=== PATIENT | male | born 1960 | race Caucasian/White ===

== ENCOUNTER 2019-10-13 19:53 | Inpatient (IN) | payer MEDICAID ==
[~2019-10-13] VITALS: Ht 175.3 cm; Wt 69.4 kg
[~2019-10-13 19:53] MED LIST: AMLO10TA80 PO; ATOR20TA65 PO; METO100T16 PO; MONT10TA26 PO
[2019-10-13 21:53] LABS: HEMATOCRIT. 27.9 % (42.0-52.0); HEMOGLOBIN. 9.2 g/dL (14.0-18.0); MEAN CORPUSCULAR VOLUME 90.7 fL (80.0-94.0); MEAN PLATELET VOLUME 9.3 fl (7.4-10.4); PLATELET 165 x1000/uL (130-400); RED BLOOD CELL COUNT 3.08 mill/uL (4.7-6.1); RED CELL DISTRIBUTION WIDTH 17.9 % (11.6-14.6)
[2019-10-13 21:57] LABS: CHLORIDE 98 mEq/L (98-107)
[2019-10-13 21:58] LABS: PROTHROMBIN TIME 10.7 sec (9.6-11.0)
[2019-10-13] MEDS ORDERED: LEVOFLOXACIN 750MG PREMIX 150 ML IV ONE (22:15)
[2019-10-13 22:39] LABS: BG BASE EXCESS -0.5 mmol/L (-2.0-2.0); BG CARBOXYHEMOGLOBIN 0.4 % (0.5-1.5); BG DEOXYHEMOGLOBIN 5.5 % (0.0-5.0); BG FRACTION INSPIRED OXYGEN 28; BG HCO3 ACT 24.2 mmol/L (22.0-26.0); BG METHEMOGLOBIN 0.1 % (0.0-1.5); BG OXYGEN SATURATION 94.5 % (92.0-98.5); BG PCO2 39.8 mmHg (35.0-45.0); BG PH 7.402 (7.350-7.450); BG PO2 78.5 mmHg (75.0-100.0); BG SAMPLE SITE LEFT BRACHIAL; BG TOTAL HEMOGLOBIN 9.5 g/dL (12.0-18.0); BG VENT MODE NASAL CANNULA
[2019-10-13 22:54] LABS: PLATELET ESTIMATE NORMAL
[2019-10-13] MEDS ORDERED: HYDROCODONE/ACETAMINOPHEN 5/325MG TABLET PO ONE (23:45)
[2019-10-14] VITALS (8 sets, daily range): BP systolic 107–151; BP diastolic 59–89
[2019-10-14] MEDS ORDERED: ONDANSETRON HCL 4MG/2ML INJ IV ONE
[2019-10-14] MEDS ORDERED: PROMETHAZINE/DEXTROMETHORPHAN 6.25-15MG/5ML BOTTLE 120ML PO ONE
[2019-10-14] MEDS ORDERED: MORPHINE SULFATE 2 MG/ML CPJ (NOT FOR IM USE) IV PRN (01:45)
[2019-10-14] MEDS ORDERED: ALBUTEROL (0.5%) 2.5MG/0.5ML NEB HHN PRN (01:45)
[2019-10-14] MEDS ORDERED: DIPHENHYDRAMINE 50MG/ML VIAL IM PRN (01:45)
[2019-10-14] MEDS: SEVELAMER CARBONATE 800 MG TABLET PO SCH ×3 (06:39→19:08)
[2019-10-14] MEDS ORDERED: AZITHROMYCIN 500 MG in DEXT 5% WATER 250 ML IV SCH (08:00)
[2019-10-14] MEDS: FOLIC ACID/VITAMIN B COMP W-C TABLET PO SCH (09:51)
[2019-10-14] MEDS: CEFTRIAXONE 1 G PREMIX 50 ML IV SCH (09:51)
[2019-10-14] MEDS: METOPROLOL TARTRATE 50MG TABLET PO SCH (09:51)
[2019-10-14] MEDS: LOSARTAN POTASSIUM 50 MG TABLET PO SCH (09:52)
[2019-10-14] MEDS: ASPIRIN 81MG TABLET PO SCH (09:52)
[2019-10-14] MEDS: AMLODIPINE 10MG TABLET PO SCH (09:52)
[2019-10-14 12:08] LABS: HEMATOCRIT. 25.3 % (42.0-52.0); HEMOGLOBIN. 8.3 g/dL (14.0-18.0); MEAN CORPUSCULAR VOLUME 91.8 fL (80.0-94.0); MEAN PLATELET VOLUME 9.7 fl (7.4-10.4); PLATELET 151 x1000/uL (130-400); RED BLOOD CELL COUNT 2.76 mill/uL (4.7-6.1); RED CELL DISTRIBUTION WIDTH 17.7 % (11.6-14.6)
[2019-10-14 12:31] LABS: PHOSPHORUS 6.5 mg/dL (2.5-4.9)
[2019-10-14 12:50] LABS: PLATELET ESTIMATE NORMAL
[2019-10-14] MEDS: ACETAMINOPHEN 325MG TABLET PO PRN (22:16)
[2019-10-15] VITALS: BP 91/43
[2019-10-15] MEDS: METOPROLOL TARTRATE 50MG TABLET PO SCH ×3 (00:51→21:22)
[2019-10-15] MEDS: HYDROXYCHLOROQUINE SULFATE 200MG TABLET PO SCH ×2 (00:51→10:01)
[2019-10-15] MEDS: ZINC SULFATE 220 MG ( 50 ) CAPSULE PO SCH ×2 (00:51→10:00)
[2019-10-15 04:00] VITALS: BP 96/52
[2019-10-15] MEDS: SEVELAMER CARBONATE 800 MG TABLET PO SCH ×3 (06:21→17:10)
[2019-10-15 08:00] VITALS: BP 117/60
[2019-10-15] MEDS: CEFTRIAXONE 1 G PREMIX 50 ML IV SCH (09:00)
[2019-10-15] MEDS: ASPIRIN 81MG TABLET PO SCH ×2 (09:00→10:00)
[2019-10-15] MEDS: FOLIC ACID/VITAMIN B COMP W-C TABLET PO SCH (10:00)
[2019-10-15] MEDS: LOSARTAN POTASSIUM 50 MG TABLET PO SCH (10:00)
[2019-10-15] MEDS: AMLODIPINE 10MG TABLET PO SCH (10:00)
[2019-10-15] MEDS: AZITHROMYCIN 500 MG TABLET PO SCH (10:00)
[2019-10-15 10:39] LABS: HEMOGLOBIN. 8.1 g/dL (14.0-18.0); MEAN CORPUSCULAR HEMOGLOBIN 29.7 pg (28.0-32.0); MEAN CORPUSCULAR VOLUME 92.3 fL (80.0-94.0); MEAN PLATELET VOLUME 9.4 fl (7.4-10.4); PLATELET 166 x1000/uL (130-400); RED BLOOD CELL COUNT 2.71 mill/uL (4.7-6.1)
[2019-10-15 11:51] VITALS: BP 114/67
[2019-10-15] MEDS: ACETAMINOPHEN 325MG TABLET PO PRN (14:06)
[2019-10-15] MEDS ORDERED: BENZONATATE 100MG CAPSULE PO PRN (17:15)
[2019-10-15 20:00] VITALS: BP 125/63
[2019-10-15] MEDS ORDERED: HYDROXYCHLOROQUINE SULFATE 200MG TABLET PO SCH (21:00)
[2019-10-15] MEDS ORDERED: EPOETIN ALFA 10000UNITS/ML VIAL SUBCUT SCH (21:00)
[2019-10-15] MEDS: GUAIFENESIN 600MG ER TABLET PO SCH (21:22)
[2019-10-16] VITALS (8 sets, daily range): BP systolic 108–130; BP diastolic 41–69
[2019-10-16 06:15] LABS: BASOPHILS % 0.6 % (0.0-2.0); EOSINOPHILS % 4.6 % (0.0-5.0); HEMATOCRIT. 24.2 % (42.0-52.0); HEMOGLOBIN. 7.7 g/dL (14.0-18.0); LYMPHOCYTES % 12.9 % (20.0-50.0); MEAN CORPUSCULAR HEMOGLOBIN 29.4 pg (28.0-32.0); MEAN PLATELET VOLUME 9.4 fl (7.4-10.4); MONOCYTES % 12.2 % (2.0-8.0); NEUTROPHILS % 69.7 % (40.0-76.0); PLATELET 169 x1000/uL (130-400); RED BLOOD CELL COUNT 2.63 mill/uL (4.7-6.1); RED CELL DISTRIBUTION WIDTH 17.6 % (11.6-14.6)
[2019-10-16 08:25] LABS: PLATELET ESTIMATE NORMAL
[2019-10-16] MEDS: METOPROLOL TARTRATE 50MG TABLET PO SCH (09:00)
[2019-10-16] MEDS: AMLODIPINE 10MG TABLET PO SCH (09:00)
[2019-10-16] MEDS: LOSARTAN POTASSIUM 50 MG TABLET PO SCH (09:00)
[2019-10-16] MEDS: SEVELAMER CARBONATE 800 MG TABLET PO SCH ×2 (09:15→14:07)
[2019-10-16] MEDS: ZINC SULFATE 220 MG ( 50 ) CAPSULE PO SCH (09:15)
[2019-10-16] MEDS: FOLIC ACID/VITAMIN B COMP W-C TABLET PO SCH (09:16)
[2019-10-16] MEDS: GUAIFENESIN 600MG ER TABLET PO SCH (09:16)
[2019-10-16] MEDS: ASPIRIN 81MG TABLET PO SCH (09:17)
[2019-10-16] MEDS: AZITHROMYCIN 500 MG TABLET PO SCH (09:24)
[2019-10-16] MEDS ORDERED: CEFTRIAXONE 1 G PREMIX 50 ML IV SCH (11:00)
[2019-10-16] MEDS ORDERED: IPRATROPIUM/ALBUTEROL 0.5-3(2.5)MG/3ML NEB HHN SCH (13:30)
== END 2019-10-16 20:45 | disposition home or self-care (01) | DRG 139 ==
LOC: ER 19:53 → 7EST 22:29 → ENRESERV 23:47 → 7WST 10-15 23:22
PROVIDERS: ADMIT Internal Medicine; ATTEND Internal Medicine
PROC: 5A1D70Z Performance of Urinary Filtration, Intermittent, Less than 6 Hours Per Day (ICD-10-PCS; 2019-10-14)
PROC: 05HY33Z Insertion of Infusion Device into Upper Vein, Percutaneous Approach (ICD-10-PCS; principal; 2019-10-15)
PROC: B54NZZA Ultrasonography of Left Upper Extremity Veins, Guidance (ICD-10-PCS; 2019-10-15)
PROC: 5A1D70Z Performance of Urinary Filtration, Intermittent, Less than 6 Hours Per Day (ICD-10-PCS; 2019-10-16)
DX: J18.9 Pneumonia, unspecified organism (principal); R65.11 Systemic inflammatory response syndrome (SIRS) of non-infectious origin with acute organ dysfunction; J96.01 Acute respiratory failure with hypoxia; I12.0 Hypertensive chronic kidney disease with stage 5 chronic kidney disease or end stage renal disease; N18.6 End stage renal disease; E87.1 Hypo-osmolality and hyponatremia; M94.0 Chondrocostal junction syndrome [Tietze]; E78.5 Hyperlipidemia, unspecified; F17.210 Nicotine dependence, cigarettes, uncomplicated; I25.10 Atherosclerotic heart disease of native coronary artery without angina pectoris; D64.9 Anemia, unspecified; F15.10 Other stimulant abuse, uncomplicated; R19.7 Diarrhea, unspecified; Z20.828 Contact with and (suspected) exposure to other viral communicable diseases; Z82.49 Family history of ischemic heart disease and other diseases of the circulatory system; Z95.1 Presence of aortocoronary bypass graft; Z99.2 Dependence on renal dialysis; Z79.899 Other long term (current) drug therapy; Z71.6 Tobacco abuse counseling
CPT/HCPCS: 36415; 36600; 71045; 76937; 80048; 80053; 80061; 82375; 82805; 83605; 83880; 84100; 84484; 85025; 86141; 87635; 87804; 93005; 94640; 99291; C1725; C1769; J0456; J0696; J0885; J1956; J2270; J2405; J7060

== ENCOUNTER 2019-10-29 10:56 | Inpatient (IN) | payer MEDICAID ==
[~2019-10-29] VITALS: Ht 165.1 cm; Wt 718.5 kg
[2019-10-29 12:12] LABS: BASOPHILS % 2.7 % (0.0-2.0); EOSINOPHILS % 6.3 % (0.0-5.0); HEMATOCRIT. 21.6 % (42.0-52.0); LYMPHOCYTES % 12.7 % (20.0-50.0); MEAN CORPUSCULAR HEMOGLOBIN 30.8 pg (28.0-32.0); MEAN CORPUSCULAR VOLUME 94.5 fL (80.0-94.0); MEAN PLATELET VOLUME 9.3 fl (7.4-10.4); MONOCYTES % 10.1 % (2.0-8.0); NEUTROPHILS % 68.2 % (40.0-76.0); PLATELET 280 x1000/uL (130-400); RED BLOOD CELL COUNT 2.28 mill/uL (4.7-6.1); RED CELL DISTRIBUTION WIDTH 19.5 % (11.6-14.6)
[2019-10-29 12:17] LABS: CHLORIDE 103 mEq/L (98-107)
[2019-10-29 18:00] VITALS: BP 166/85
[2019-10-29] MEDS ORDERED: ACETAMINOPHEN 325MG TABLET PO PRN (18:15)
[2019-10-29] MEDS ORDERED: IPRATROPIUM/ALBUTEROL 0.5-3(2.5)MG/3ML NEB HHN PRN (18:15)
[2019-10-29] MEDS ORDERED: ONDANSETRON HCL 4MG/2ML INJ IV PRN (18:15)
[2019-10-29] MEDS ORDERED: LORAZEPAM 0.5MG TABLET PO PRN (18:15)
[2019-10-29] MEDS ORDERED: CLONIDINE 0.1MG TABLET PO PRN (18:15)
[2019-10-29] MEDS ORDERED: HYDROCODONE/ACETAMINOPHEN 5/325MG TABLET PO PRN (18:15)
[2019-10-29 20:00] VITALS: BP_SYST 122; BP_SYST 150; BP_DIAS 57; BP_DIAS 78
[2019-10-29 21:00] LABS: D-DIMER 1.77 mg/L FEU (<0.50); INR 0.9; PROTHROMBIN TIME 10.3 sec (9.6-11.0)
[2019-10-29] MEDS: NICOTINE 14MG PATCH TD SCH (23:00)
[2019-10-30] VITALS (9 sets, daily range): BP systolic 123–154; BP diastolic 51–93
[2019-10-30] MEDS ORDERED: HEPARIN SODIUM 1,000 UNIT/1ML VIAL IV NR (02:00)
[2019-10-30 07:00] LABS: BASOPHILS % 1.3 % (0.0-2.0); EOSINOPHILS % 7.2 % (0.0-5.0); LYMPHOCYTES % 11.3 % (20.0-50.0); MEAN CORPUSCULAR HEMOGLOBIN 30.9 pg (28.0-32.0); MEAN CORPUSCULAR VOLUME 92.8 fL (80.0-94.0); MEAN PLATELET VOLUME 8.9 fl (7.4-10.4); MONOCYTES % 8.5 % (2.0-8.0); NEUTROPHILS % 71.7 % (40.0-76.0); PLATELET 235 x1000/uL (130-400); RED BLOOD CELL COUNT 2.21 mill/uL (4.7-6.1); RED CELL DISTRIBUTION WIDTH 19.9 % (11.6-14.6)
[2019-10-30 07:23] LABS: FERRITIN 252 ng/mL (22-322)
[2019-10-30 07:54] LABS: FOLIC ACID (FOLATE) SERUM >20 ng/mL ng/mL (>5.38)
[2019-10-30 08:06] LABS: VITAMIN B12 SERUM 897 pg/mL (211-911)
[2019-10-30 08:24] LABS: HEMATOCRIT. 20.5 % (42.0-52.0); HEMOGLOBIN. 6.8 g/dL (14.0-18.0)
[2019-10-30] MEDS: METOPROLOL TARTRATE 50MG TABLET PO SCH (09:00)
[2019-10-30] MEDS: MONTELUKAST SODIUM 10MG TABLET PO SCH (09:21)
[2019-10-30] MEDS: ATORVASTATIN CALCIUM 20MG TABLET PO SCH (09:21)
[2019-10-30] MEDS: NICOTINE 14MG PATCH TD SCH (09:21)
[2019-10-30] MEDS: AMLODIPINE 10MG TABLET PO SCH (09:42)
[2019-10-30 20:29] LABS: HEMATOCRIT 25.1 % (42.0-52.0); HEMOGLOBIN 8.3 g/dL (14.0-18.0)
[2019-10-31 00:39] VITALS: BP 136/61
[2019-10-31 04:00] VITALS: BP 159/74
[2019-10-31 06:01] LABS: HEMATOCRIT. 24.9 % (42.0-52.0); HEMOGLOBIN. 8.2 g/dL (14.0-18.0); MEAN CORPUSCULAR HEMOGLOBIN 31.1 pg (28.0-32.0); MEAN CORPUSCULAR VOLUME 94.7 fL (80.0-94.0); MEAN PLATELET VOLUME 9.1 fl (7.4-10.4); PLATELET 220 x1000/uL (130-400); RED BLOOD CELL COUNT 2.63 mill/uL (4.7-6.1); RED CELL DISTRIBUTION WIDTH 19.3 % (11.6-14.6)
[2019-10-31] MEDS: NICOTINE 14MG PATCH TD SCH (08:43)
[2019-10-31] MEDS: AMLODIPINE 10MG TABLET PO SCH (08:44)
[2019-10-31] MEDS: MONTELUKAST SODIUM 10MG TABLET PO SCH (08:44)
[2019-10-31] MEDS: METOPROLOL TARTRATE 50MG TABLET PO SCH (08:44)
[2019-10-31] MEDS: ATORVASTATIN CALCIUM 20MG TABLET PO SCH (08:44)
[2019-10-31 12:18] LABS: PLATELET ESTIMATE NORMAL
[2019-10-31 13:34] VITALS: BP 144/71
[2019-10-31 13:35] VITALS: BP 108/50
[2019-10-31] MEDS: POLYETHYLENE GLYCOL 3350 (17GM) 1 DOSE PACK PO SCH (13:41)
[2019-10-31 16:00] VITALS: BP 105/45
[2019-10-31] MEDS: FERROUS SULFATE 325MG TABLET PO SCH (17:50)
[2019-10-31 20:00] VITALS: BP 123/66
[2019-11-01] VITALS: BP 125/57
[2019-11-01 04:00] VITALS: BP 128/61
[2019-11-01 04:06] LABS: HIV SCREEN 4G Non Reactive (Non Reactive)
[2019-11-01 07:10] LABS: HEMOGLOBIN. 8.1 g/dL (14.0-18.0); MEAN CORPUSCULAR HEMOGLOBIN 30.4 pg (28.0-32.0); MEAN CORPUSCULAR VOLUME 93.4 fL (80.0-94.0); PLATELET 215 x1000/uL (130-400); RED BLOOD CELL COUNT 2.68 mill/uL (4.7-6.1); RED CELL DISTRIBUTION WIDTH 20.1 % (11.6-14.6)
[2019-11-01] MEDS: NICOTINE 14MG PATCH TD SCH (09:00)
[2019-11-01] MEDS: DOCUSATE SODIUM 100MG CAPSULE PO PRN (09:40)
[2019-11-01] MEDS: AMLODIPINE 10MG TABLET PO SCH (09:41)
[2019-11-01] MEDS: METOPROLOL TARTRATE 50MG TABLET PO SCH (09:42)
[2019-11-01] MEDS: MONTELUKAST SODIUM 10MG TABLET PO SCH (09:43)
[2019-11-01] MEDS: POLYETHYLENE GLYCOL 3350 (17GM) 1 DOSE PACK PO SCH (09:43)
[2019-11-01] MEDS: ATORVASTATIN CALCIUM 20MG TABLET PO SCH (09:43)
[2019-11-01] MEDS: FERROUS SULFATE 325MG TABLET PO SCH ×4 (09:43→18:40)
[2019-11-01 11:31] VITALS: BP 157/79
[2019-11-01 14:57] LABS: PLATELET ESTIMATE NORMAL
[2019-11-01 16:00] VITALS: BP 155/85
[2019-11-01 20:00] VITALS: BP 109/51
[2019-11-02] VITALS: BP 119/59
[2019-11-02 04:00] VITALS: BP 132/73
[2019-11-02 07:24] LABS: BASOPHILS % 0.8 % (0.0-2.0); EOSINOPHILS % 6.9 % (0.0-5.0); HEMATOCRIT. 24.3 % (42.0-52.0); HEMOGLOBIN. 7.9 g/dL (14.0-18.0); LYMPHOCYTES % 14.7 % (20.0-50.0); MEAN CORPUSCULAR HEMOGLOBIN 30.4 pg (28.0-32.0); MEAN CORPUSCULAR VOLUME 93.9 fL (80.0-94.0); MEAN PLATELET VOLUME 9.2 fl (7.4-10.4); MONOCYTES % 13.2 % (2.0-8.0); NEUTROPHILS % 64.4 % (40.0-76.0); PLATELET 213 x1000/uL (130-400); RED BLOOD CELL COUNT 2.59 mill/uL (4.7-6.1); RED CELL DISTRIBUTION WIDTH 19.3 % (11.6-14.6)
[2019-11-02 08:00] VITALS: BP 132/58
[2019-11-02] MEDS: METOPROLOL TARTRATE 50MG TABLET PO SCH (09:00)
[2019-11-02] MEDS: ATORVASTATIN CALCIUM 20MG TABLET PO SCH (09:12)
[2019-11-02] MEDS: AMLODIPINE 10MG TABLET PO SCH (09:17)
[2019-11-02] MEDS: NICOTINE 14MG PATCH TD SCH (09:17)
[2019-11-02] MEDS: MONTELUKAST SODIUM 10MG TABLET PO SCH (09:17)
[2019-11-02] MEDS: POLYETHYLENE GLYCOL 3350 (17GM) 1 DOSE PACK PO SCH (09:17)
[2019-11-02 12:00] VITALS: BP 118/53
[2019-11-02] MEDS: FERROUS SULFATE 325MG TABLET PO SCH (14:06)
[2019-11-02 20:00] VITALS: BP 120/65
[2019-11-03 00:03] VITALS: BP 140/66
[2019-11-03 06:31] LABS: BASOPHILS % 1.2 % (0.0-2.0); HEMATOCRIT. 26.4 % (42.0-52.0); HEMOGLOBIN. 8.8 g/dL (14.0-18.0); LYMPHOCYTES % 12.8 % (20.0-50.0); MEAN CORPUSCULAR HEMOGLOBIN 30.9 pg (28.0-32.0); MEAN CORPUSCULAR VOLUME 92.5 fL (80.0-94.0); MONOCYTES % 13.9 % (2.0-8.0); NEUTROPHILS % 67.1 % (40.0-76.0); PLATELET 196 x1000/uL (130-400); RED BLOOD CELL COUNT 2.85 mill/uL (4.7-6.1); RED CELL DISTRIBUTION WIDTH 18.8 % (11.6-14.6)
[2019-11-03] MEDS: FERROUS SULFATE 325MG TABLET PO SCH ×3 (07:50→12:52)
[2019-11-03 08:00] VITALS: BP 149/50
[2019-11-03] MEDS: NICOTINE 14MG PATCH TD SCH (08:36)
[2019-11-03] MEDS: POLYETHYLENE GLYCOL 3350 (17GM) 1 DOSE PACK PO SCH (08:37)
[2019-11-03] MEDS: ATORVASTATIN CALCIUM 20MG TABLET PO SCH (08:37)
[2019-11-03] MEDS: DOCUSATE SODIUM 100MG CAPSULE PO PRN (08:37)
[2019-11-03] MEDS: MONTELUKAST SODIUM 10MG TABLET PO SCH (08:37)
[2019-11-03] MEDS: AMLODIPINE 10MG TABLET PO SCH (08:39)
[2019-11-03] MEDS: METOPROLOL TARTRATE 50MG TABLET PO SCH (08:39)
[2019-11-03 11:51] VITALS: BP 119/31
[2019-11-03 13:01] VITALS: BP 119/81
== END 2019-11-03 14:15 | disposition home or self-care (01) | DRG 425 ==
LOC: ER 11:09 → EDBEDREQTM 14:33 → EDBEDREQ 14:33 → ENRESERV 15:59 → 6WST 17:10 → 7EST 10-30 13:12 → 6WST 10-30 21:00
PROVIDERS: ADMIT Internal Medicine; ATTEND Internal Medicine
PROC: 5A1D70Z Performance of Urinary Filtration, Intermittent, Less than 6 Hours Per Day (ICD-10-PCS; 2019-10-29)
PROC: 30233N1 Transfusion of Nonautologous Red Blood Cells into Peripheral Vein, Percutaneous Approach (ICD-10-PCS; principal; 2019-10-30)
PROC: 5A1D70Z Performance of Urinary Filtration, Intermittent, Less than 6 Hours Per Day (ICD-10-PCS; 2019-10-30)
PROC: 5A1D70Z Performance of Urinary Filtration, Intermittent, Less than 6 Hours Per Day (ICD-10-PCS; 2019-10-31)
PROC: 5A1D70Z Performance of Urinary Filtration, Intermittent, Less than 6 Hours Per Day (ICD-10-PCS; 2019-11-02)
PROC: 5A1D70Z Performance of Urinary Filtration, Intermittent, Less than 6 Hours Per Day (ICD-10-PCS; 2019-11-03)
DX: E87.5 Hyperkalemia (principal); J96.00 Acute respiratory failure, unspecified whether with hypoxia or hypercapnia; J18.9 Pneumonia, unspecified organism; J91.8 Pleural effusion in other conditions classified elsewhere; D72.1 Eosinophilia; I13.11 Hypertensive heart and chronic kidney disease without heart failure, with stage 5 chronic kidney disease, or end stage renal disease; N18.6 End stage renal disease; E87.70 Fluid overload, unspecified; D53.9 Nutritional anemia, unspecified; E78.5 Hyperlipidemia, unspecified; F15.90 Other stimulant use, unspecified, uncomplicated; I35.0 Nonrheumatic aortic (valve) stenosis; J43.9 Emphysema, unspecified; I25.10 Atherosclerotic heart disease of native coronary artery without angina pectoris; Z95.1 Presence of aortocoronary bypass graft; Z99.2 Dependence on renal dialysis; Z72.0 Tobacco use; Z79.899 Other long term (current) drug therapy
CPT/HCPCS: 36415; 71045; 71250; 80048; 80051; 80053; 82270; 82607; 82728; 82746; 83540; 83550; 83880; 84145; 84484; 85014; 85018; 85025; 85379; 86850; 86900; 86920; 87389; 93005; 99285; J2405; P9016

== ENCOUNTER 2019-11-19 12:53 | Inpatient (IN) | payer MEDICAID ==
[~2019-11-19] VITALS: Ht 165.1 cm; Wt 60.8 kg
[2019-11-19] MEDS ORDERED: METHYLPREDNISOLONE SOD SUCC 125 MG/2 ML VIAL IV STA (13:15)
[2019-11-19] MEDS ORDERED: ALBUTEROL (0.083%) 2.5MG/3ML NEB HHN STA (13:15)
[2019-11-19 14:36] LABS: BASOPHILS % 0.4 % (0.0-2.0); EOSINOPHILS % 0.1 % (0.0-5.0); HEMATOCRIT. 23.6 % (42.0-52.0); HEMOGLOBIN. 7.8 g/dL (14.0-18.0); LYMPHOCYTES % 12.1 % (20.0-50.0); MEAN CORPUSCULAR HEMOGLOBIN 29.3 pg (28.0-32.0); MEAN CORPUSCULAR VOLUME 88.7 fL (80.0-94.0); MEAN PLATELET VOLUME 9.3 fl (7.4-10.4); NEUTROPHILS % 75.4 % (40.0-76.0); PLATELET 166 x1000/uL (130-400); RED BLOOD CELL COUNT 2.66 mill/uL (4.7-6.1); RED CELL DISTRIBUTION WIDTH 17.8 % (11.6-14.6)
[2019-11-19 14:42] LABS: CHLORIDE 98 mEq/L (98-107)
[2019-11-19] MEDS ORDERED: AZITHROMYCIN 500 MG in DEXT 5% WATER 250 ML IV ONE (15:00)
[2019-11-19] MEDS ORDERED: CEFTRIAXONE 1 G PREMIX 50 ML IV ONE (15:00)
[2019-11-19] MEDS ORDERED: CEFTRIAXONE 1 G PREMIX 50 ML IV SCH (18:00)
[2019-11-19] MEDS ORDERED: AZITHROMYCIN 500 MG in DEXT 5% WATER 250 ML IV SCH (18:00)
[2019-11-19] MEDS ORDERED: CLONIDINE 0.1MG TABLET PO PRN (18:00)
[2019-11-19] MEDS ORDERED: HEPARIN 5000 UNITS/ML VIAL SUBCUT SCH (21:00)
[2019-11-19 21:15] VITALS: BP 122/69
[2019-11-19 22:57] VITALS: BP_SYST 122; BP_SYST 146; BP_DIAS 69; BP_DIAS 76
[2019-11-20] VITALS (7 sets, daily range): BP systolic 110–139; BP diastolic 50–77
[2019-11-20 07:53] LABS: HEMATOCRIT. 21.4 % (42.0-52.0); HEMOGLOBIN. 7.1 g/dL (14.0-18.0); MEAN CORPUSCULAR HEMOGLOBIN 29.3 pg (28.0-32.0); MEAN CORPUSCULAR VOLUME 88.4 fL (80.0-94.0); MEAN PLATELET VOLUME 9.6 fl (7.4-10.4); PLATELET 164 x1000/uL (130-400); RED BLOOD CELL COUNT 2.42 mill/uL (4.7-6.1); RED CELL DISTRIBUTION WIDTH 17.6 % (11.6-14.6)
[2019-11-20 07:58] LABS: CHLORIDE 99 mEq/L (98-107)
[2019-11-20 08:07] LABS: LDL CHOLESTEROL 73 mg/dL (5-100)
[2019-11-20 08:08] LABS: HDL CHOLESTEROL 36 mg/dL (40-59)
[2019-11-20] MEDS ORDERED: AZITHROMYCIN 500 MG in DEXT 5% WATER 250 ML IV NR (09:00)
[2019-11-20] MEDS: CEFTRIAXONE 1 G PREMIX 50 ML IV SCH (11:24)
[2019-11-20 13:24] LABS: BG BASE EXCESS 1.9 mmol/L (-2.0-2.0); BG CARBOXYHEMOGLOBIN 0.3 % (0.5-1.5); BG DEOXYHEMOGLOBIN 1.4 % (0.0-5.0); BG FRACTION INSPIRED OXYGEN 28; BG HCO3 ACT 26.3 mmol/L (22.0-26.0); BG METHEMOGLOBIN 0.2 % (0.0-1.5); BG OXYGEN SATURATION 98.6 % (92.0-98.5); BG OXYHEMOGLOBIN 98.1 % (94.0-97.0); BG PCO2 40.2 mmHg (35.0-45.0); BG PH 7.434 (7.350-7.450); BG PO2 145.4 mmHg (75.0-100.0); BG SAMPLE SITE LEFT RADIAL; BG TOTAL HEMOGLOBIN 6.5 g/dL (12.0-18.0); BG VENT MODE NASAL CANNULA
[2019-11-20] MEDS ORDERED: POLYETHYLENE GLYCOL 3350 (17GM) 1 DOSE PACK PO PRN (13:45)
[2019-11-20 14:36] LABS: MEAN CORPUSCULAR HEMOGLOBIN 29.6 pg (28.0-32.0); MEAN CORPUSCULAR VOLUME 87.5 fL (80.0-94.0); MEAN PLATELET VOLUME 10.3 fl (7.4-10.4); PLATELET 175 x1000/uL (130-400); RED BLOOD CELL COUNT 2.06 mill/uL (4.7-6.1); RED CELL DISTRIBUTION WIDTH 17.7 % (11.6-14.6)
[2019-11-20 14:38] LABS: HEMOGLOBIN. 6.1 g/dL (14.0-18.0)
[2019-11-20] MEDS: AMLODIPINE 10MG TABLET PO SCH (18:33)
[2019-11-20] MEDS: METOPROLOL TARTRATE 50MG TABLET PO SCH (21:18)
[2019-11-20] MEDS: ATORVASTATIN CALCIUM 20MG TABLET PO SCH (21:18)
[2019-11-20 23:12] LABS: HEMATOCRIT 22.7 % (42.0-52.0); HEMOGLOBIN 7.4 g/dL (14.0-18.0)
[2019-11-20 23:25] LABS: PHOSPHORUS 4.7 mg/dL (2.5-4.9)
[2019-11-20 23:35] LABS: PARTIAL THROMBOPLASTIN TIME 34.6 sec (23.4-31.0); PROTHROMBIN TIME 10.6 sec (9.6-11.0)
[2019-11-21] VITALS: BP 116/62
[2019-11-21] MEDS: ONDANSETRON HCL 4MG/2ML INJ IV PRN (01:14)
[2019-11-21 04:00] VITALS: BP 113/58
[2019-11-21 08:00] VITALS: BP 145/48
[2019-11-21] MEDS: METOPROLOL TARTRATE 50MG TABLET PO SCH ×2 (09:00→20:51)
[2019-11-21 09:11] LABS: PLATELET ESTIMATE NORMAL
[2019-11-21 09:28] LABS: PLATELET ESTIMATE NORMAL
[2019-11-21 11:09] LABS: HEMATOCRIT. 23.8 % (42.0-52.0); HEMOGLOBIN. 7.7 g/dL (14.0-18.0); MEAN CORPUSCULAR HEMOGLOBIN 29.4 pg (28.0-32.0); MEAN CORPUSCULAR VOLUME 90.5 fL (80.0-94.0); MEAN PLATELET VOLUME 9.7 fl (7.4-10.4); PLATELET 230 x1000/uL (130-400); RED BLOOD CELL COUNT 2.63 mill/uL (4.7-6.1); RED CELL DISTRIBUTION WIDTH 17.2 % (11.6-14.6)
[2019-11-21] MEDS: CEFTRIAXONE 1 G PREMIX 50 ML IV SCH (11:17)
[2019-11-21] MEDS: AMLODIPINE 10MG TABLET PO SCH (11:18)
[2019-11-21] MEDS: AZITHROMYCIN 250 MG in DEXT 5% WATER 250 ML IV SCH (11:19)
[2019-11-21] MEDS: MONTELUKAST SODIUM 10MG TABLET PO SCH (11:19)
[2019-11-21 12:00] VITALS: BP 148/50
[2019-11-21 12:34] LABS: PLATELET ESTIMATE NORMAL
[2019-11-21] MEDS ORDERED: LIDOCAINE HCL 1% 20ML VIAL (Pyxis) INJ ONE (13:35)
[2019-11-21] MEDS ORDERED: HEPARIN 5000 UNITS/ML VIAL SUBCUT SCH (14:00)
[2019-11-21 16:00] VITALS: BP 96/40
[2019-11-21 17:00] VITALS: BP 119/56
[2019-11-21] MEDS: ACETAMINOPHEN 325MG TABLET PO PRN (17:41)
[2019-11-21 18:25] LABS: HEMATOCRIT 23.4 % (42.0-52.0); HEMOGLOBIN 7.7 g/dL (14.0-18.0); MEAN CORPUSCULAR HEMOGLOBIN 29.4 pg (28.0-32.0); MEAN CORPUSCULAR VOLUME 89.5 fL (80.0-94.0); PLATELET 221 x1000/uL (130-400); RED BLOOD CELL COUNT 2.61 mill/uL (4.7-6.1); RED CELL DISTRIBUTION WIDTH 16.8 % (11.6-14.6)
[2019-11-21] MEDS: ATORVASTATIN CALCIUM 20MG TABLET PO SCH (20:51)
[2019-11-21] MEDS: DEXT 5%/0.9% NACL 1,000 ML IV SCH (20:52)
[2019-11-22] VITALS: BP 133/45
[2019-11-22] MEDS: ACETAMINOPHEN 325MG TABLET PO PRN (02:52)
[2019-11-22 04:00] VITALS: BP 145/57
[2019-11-22 08:00] VITALS: BP 102/65
[2019-11-22] MEDS: METOPROLOL TARTRATE 50MG TABLET PO SCH ×2 (09:00→21:23)
[2019-11-22] MEDS: AMLODIPINE 10MG TABLET PO SCH (09:00)
[2019-11-22] MEDS: CEFTRIAXONE 1 G PREMIX 50 ML IV SCH (09:00)
[2019-11-22] MEDS: MONTELUKAST SODIUM 10MG TABLET PO SCH (09:57)
[2019-11-22] MEDS: DEXT 5%/0.9% NACL 1,000 ML IV SCH (11:40)
[2019-11-22 11:43] LABS: HEMATOCRIT. 24.2 % (42.0-52.0); MEAN CORPUSCULAR HEMOGLOBIN 29.8 pg (28.0-32.0); MEAN CORPUSCULAR VOLUME 90.5 fL (80.0-94.0); MEAN PLATELET VOLUME 9.6 fl (7.4-10.4); PLATELET 229 x1000/uL (130-400); RED BLOOD CELL COUNT 2.68 mill/uL (4.7-6.1); RED CELL DISTRIBUTION WIDTH 17.4 % (11.6-14.6)
[2019-11-22 12:00] VITALS: BP 158/65
[2019-11-22 14:51] LABS: PLATELET ESTIMATE NORMAL
[2019-11-22] MEDS: AZITHROMYCIN 250 MG in DEXT 5% WATER 250 ML IV SCH (14:53)
[2019-11-22 16:00] VITALS: BP 110/71
[2019-11-22 17:00] LABS: MEAN CORPUSCULAR HEMOGLOBIN 29.6 pg (28.0-32.0); MEAN CORPUSCULAR VOLUME 89.4 fL (80.0-94.0); PLATELET 193 x1000/uL (130-400); RED BLOOD CELL COUNT 2.34 mill/uL (4.7-6.1)
[2019-11-22 17:19] LABS: HEMOGLOBIN 6.9 g/dL (14.0-18.0)
[2019-11-22 17:20] LABS: HEMATOCRIT 20.9 % (42.0-52.0)
[2019-11-22 20:00] VITALS: BP 137/76
[2019-11-22] MEDS: ATORVASTATIN CALCIUM 20MG TABLET PO SCH (21:23)
[2019-11-22] MEDS: ONDANSETRON HCL 4MG/2ML INJ IV PRN (22:58)
[2019-11-23] VITALS: BP 120/68
[2019-11-23 04:00] VITALS: BP 126/82
[2019-11-23] MEDS: DEXT 5%/0.9% NACL 1,000 ML IV SCH (04:20)
[2019-11-23 08:00] VITALS: BP 142/72
[2019-11-23] MEDS: AZITHROMYCIN 250 MG in DEXT 5% WATER 250 ML IV SCH (08:02)
[2019-11-23] MEDS: CEFTRIAXONE 1 G PREMIX 50 ML IV SCH (08:03)
[2019-11-23] MEDS: MONTELUKAST SODIUM 10MG TABLET PO SCH (08:59)
[2019-11-23] MEDS: AMLODIPINE 10MG TABLET PO SCH (09:00)
[2019-11-23] MEDS: METOPROLOL TARTRATE 50MG TABLET PO SCH ×2 (09:00→21:12)
[2019-11-23 12:10] VITALS: BP 119/57
[2019-11-23 16:00] VITALS: BP 130/80
[2019-11-23 20:00] VITALS: BP 134/56
[2019-11-23 20:51] LABS: HEMATOCRIT 23.2 % (42.0-52.0); HEMOGLOBIN 7.9 g/dL (14.0-18.0)
[2019-11-23] MEDS: ATORVASTATIN CALCIUM 20MG TABLET PO SCH (21:13)
[2019-11-23] MEDS: EPOETIN ALFA 10000UNITS/ML VIAL SUBCUT SCH (21:19)
[2019-11-23] MEDS: ACETAMINOPHEN 325MG TABLET PO PRN (22:36)
[2019-11-24] VITALS (11 sets, daily range): BP systolic 98–145; BP diastolic 46–73
[2019-11-24 01:19] LABS: HEMATOCRIT 21.2 % (42.0-52.0); HEMOGLOBIN 7.1 g/dL (14.0-18.0)
[2019-11-24] MEDS: MONTELUKAST SODIUM 10MG TABLET PO SCH (09:43)
[2019-11-24] MEDS: ACETAMINOPHEN 325MG TABLET PO PRN ×2 (09:44→21:43)
[2019-11-24] MEDS: AMLODIPINE 10MG TABLET PO SCH (09:44)
[2019-11-24] MEDS: METOPROLOL TARTRATE 50MG TABLET PO SCH ×2 (09:44→21:00)
[2019-11-24] MEDS: AZITHROMYCIN 250 MG in DEXT 5% WATER 250 ML IV SCH (09:45)
[2019-11-24] MEDS: CEFTRIAXONE 1 G PREMIX 50 ML IV SCH (09:45)
[2019-11-24 11:24] LABS: HEMATOCRIT. 25.3 % (42.0-52.0); HEMOGLOBIN. 8.5 g/dL (14.0-18.0); MEAN CORPUSCULAR HEMOGLOBIN 29.8 pg (28.0-32.0); MEAN CORPUSCULAR VOLUME 88.2 fL (80.0-94.0); MEAN PLATELET VOLUME 9.4 fl (7.4-10.4); PLATELET 235 x1000/uL (130-400); RED BLOOD CELL COUNT 2.87 mill/uL (4.7-6.1); RED CELL DISTRIBUTION WIDTH 15.6 % (11.6-14.6)
[2019-11-24] MEDS: FERROUS SULFATE 325MG TABLET PO SCH ×2 (12:51→17:54)
[2019-11-24 13:04] LABS: PLATELET ESTIMATE NORMAL
[2019-11-24 16:29] LABS: HEMATOCRIT 25.8 % (42.0-52.0); HEMOGLOBIN 8.7 g/dL (14.0-18.0)
[2019-11-24] MEDS: ATORVASTATIN CALCIUM 20MG TABLET PO SCH (21:42)
[2019-11-24] MEDS: DIPHENHYDRAMINE 50MG/ML VIAL IV PRN (23:47)
[2019-11-25] VITALS: BP 105/55
[2019-11-25 04:00] VITALS: BP 112/59
[2019-11-25 08:00] VITALS: BP 141/78
[2019-11-25] MEDS: METOPROLOL TARTRATE 50MG TABLET PO SCH ×2 (09:00→21:30)
[2019-11-25] MEDS: AMLODIPINE 10MG TABLET PO SCH (09:00)
[2019-11-25] MEDS: CEFTRIAXONE 1 G PREMIX 50 ML IV SCH (09:33)
[2019-11-25] MEDS: MONTELUKAST SODIUM 10MG TABLET PO SCH (09:33)
[2019-11-25] MEDS: FERROUS SULFATE 325MG TABLET PO SCH ×3 (09:34→17:54)
[2019-11-25 12:00] VITALS: BP 120/80
[2019-11-25 16:00] VITALS: BP 136/70
[2019-11-25 20:00] VITALS: BP 128/65
[2019-11-25] MEDS: DIPHENHYDRAMINE 50MG/ML VIAL IV PRN (21:27)
[2019-11-25] MEDS: ATORVASTATIN CALCIUM 20MG TABLET PO SCH (21:27)
[2019-11-25] MEDS: EPOETIN ALFA 10000UNITS/ML VIAL SUBCUT SCH (21:28)
[2019-11-26] VITALS: BP 109/58
[2019-11-26 04:00] VITALS: BP 118/67
[2019-11-26 07:00] LABS: HEMATOCRIT. 23.6 % (42.0-52.0); HEMOGLOBIN. 8.1 g/dL (14.0-18.0); MEAN CORPUSCULAR HEMOGLOBIN 29.9 pg (28.0-32.0); MEAN CORPUSCULAR VOLUME 87.6 fL (80.0-94.0); PLATELET 242 x1000/uL (130-400); RED BLOOD CELL COUNT 2.69 mill/uL (4.7-6.1); RED CELL DISTRIBUTION WIDTH 16.1 % (11.6-14.6)
[2019-11-26 08:00] VITALS: BP 124/65
[2019-11-26] MEDS: METOPROLOL TARTRATE 50MG TABLET PO SCH ×2 (09:00→20:53)
[2019-11-26] MEDS: AMLODIPINE 10MG TABLET PO SCH (09:00)
[2019-11-26] MEDS: MONTELUKAST SODIUM 10MG TABLET PO SCH (10:37)
[2019-11-26] MEDS: FERROUS SULFATE 325MG TABLET PO SCH ×3 (10:37→18:36)
[2019-11-26 12:00] VITALS: BP 144/78
[2019-11-26 14:14] LABS: PLATELET ESTIMATE NORMAL
[2019-11-26 16:00] VITALS: BP 108/65
[2019-11-26 20:00] VITALS: BP 96/69
[2019-11-26] MEDS: ATORVASTATIN CALCIUM 20MG TABLET PO SCH (20:53)
[2019-11-27] VITALS: BP 138/79
[2019-11-27 04:00] VITALS: BP 147/80
[2019-11-27 08:00] VITALS: BP 118/76
[2019-11-27] MEDS: MONTELUKAST SODIUM 10MG TABLET PO SCH (08:55)
[2019-11-27] MEDS: FERROUS SULFATE 325MG TABLET PO SCH ×3 (08:55→17:36)
[2019-11-27] MEDS: AMLODIPINE 10MG TABLET PO SCH (08:55)
[2019-11-27] MEDS: METOPROLOL TARTRATE 50MG TABLET PO SCH ×2 (08:55→20:53)
[2019-11-27 12:45] VITALS: BP 113/62
[2019-11-27 16:00] VITALS: BP 101/71
[2019-11-27 20:00] VITALS: BP 120/59
[2019-11-27] MEDS: ATORVASTATIN CALCIUM 20MG TABLET PO SCH (20:53)
[2019-11-28] VITALS: BP 121/65
[2019-11-28 04:00] VITALS: BP 128/72
[2019-11-28 05:06] LABS: EOSINOPHILS % 5.2 % (0.0-5.0); HEMOGLOBIN. 8.3 g/dL (14.0-18.0); LYMPHOCYTES % 12.4 % (20.0-50.0); MEAN CORPUSCULAR HEMOGLOBIN 29.9 pg (28.0-32.0); MEAN CORPUSCULAR VOLUME 89.7 fL (80.0-94.0); MEAN PLATELET VOLUME 9.1 fl (7.4-10.4); MONOCYTES % 14.1 % (2.0-8.0); NEUTROPHILS % 67.3 % (40.0-76.0); PLATELET 282 x1000/uL (130-400); RED BLOOD CELL COUNT 2.78 mill/uL (4.7-6.1); RED CELL DISTRIBUTION WIDTH 16.2 % (11.6-14.6)
[2019-11-28 08:00] VITALS: BP 160/87
[2019-11-28] MEDS: METOPROLOL TARTRATE 50MG TABLET PO SCH (09:00)
[2019-11-28] MEDS: MONTELUKAST SODIUM 10MG TABLET PO SCH (09:12)
[2019-11-28] MEDS: AMLODIPINE 10MG TABLET PO SCH (09:12)
[2019-11-28] MEDS: FERROUS SULFATE 325MG TABLET PO SCH ×2 (09:12→13:37)
[2019-11-28 12:00] VITALS: BP 126/61
[2019-11-28 16:00] VITALS: BP 140/63
[2019-11-28 17:02] VITALS: BP 140/63
[2019-11-28] MEDS ORDERED: FERR325T23 PO (17:04)
== END 2019-11-28 17:52 | disposition home or self-care (01) | DRG 720 ==
LOC: ER 13:01 → EDBEDREQ 15:46 → EDBEDREQTM 15:46 → ENRESERV 18:47 → 7WST 20:32
PROVIDERS: ADMIT Internal Medicine; ATTEND Internal Medicine
PROC: 30233N1 Transfusion of Nonautologous Red Blood Cells into Peripheral Vein, Percutaneous Approach (ICD-10-PCS; 2019-11-20)
PROC: 5A1D70Z Performance of Urinary Filtration, Intermittent, Less than 6 Hours Per Day (ICD-10-PCS; 2019-11-20)
PROC: B54NZZA Ultrasonography of Left Upper Extremity Veins, Guidance (ICD-10-PCS; principal; 2019-11-21)
PROC: 05HY33Z Insertion of Infusion Device into Upper Vein, Percutaneous Approach (ICD-10-PCS; 2019-11-21)
PROC: 5A1D70Z Performance of Urinary Filtration, Intermittent, Less than 6 Hours Per Day (ICD-10-PCS; 2019-11-22)
PROC: 5A1D70Z Performance of Urinary Filtration, Intermittent, Less than 6 Hours Per Day (ICD-10-PCS; 2019-11-24)
PROC: 5A1D70Z Performance of Urinary Filtration, Intermittent, Less than 6 Hours Per Day (ICD-10-PCS; 2019-11-25)
PROC: 5A1D70Z Performance of Urinary Filtration, Intermittent, Less than 6 Hours Per Day (ICD-10-PCS; 2019-11-28)
DX: A41.89 Other specified sepsis (principal); U07.1 COVID-19; J96.00 Acute respiratory failure, unspecified whether with hypoxia or hypercapnia; I13.2 Hypertensive heart and chronic kidney disease with heart failure and with stage 5 chronic kidney disease, or end stage renal disease; E11.22 Type 2 diabetes mellitus with diabetic chronic kidney disease; F17.200 Nicotine dependence, unspecified, uncomplicated; D50.0 Iron deficiency anemia secondary to blood loss (chronic); J12.89 Other viral pneumonia; N18.6 End stage renal disease; J43.9 Emphysema, unspecified; K92.1 Melena; E87.70 Fluid overload, unspecified; D64.9 Anemia, unspecified; E78.5 Hyperlipidemia, unspecified; E87.5 Hyperkalemia; I25.10 Atherosclerotic heart disease of native coronary artery without angina pectoris; I35.0 Nonrheumatic aortic (valve) stenosis; I50.9 Heart failure, unspecified; Z95.1 Presence of aortocoronary bypass graft; Z99.2 Dependence on renal dialysis; Z79.899 Other long term (current) drug therapy
CPT/HCPCS: 36415; 36600; 71045; 76937; 78278; 80048; 80053; 80061; 82270; 82375; 82728; 82805; 83540; 83550; 83615; 83735; 84100; 84443; 84484; 85014; 85018; 85025; 85027; 86140; 86850; 86900; 86920; 87045; 87449; 87635; 89055; 93005; 94640; 96365; 99291; A9560; C1725; J0456; J0696; J0885; J1200; J1644; J2405; J2930; J3490; J7060; P9016; U0003-CS

== ENCOUNTER 2020-02-07 06:27 | Inpatient (IN) | payer MEDICAID ==
[~2020-02-07] VITALS: Ht 167.6 cm; Wt 63.6 kg
[~2020-02-07 06:27] MED LIST changes: +FERR325T23 PO
[2020-02-07] MEDS ORDERED: DILTIAZEM HCL 5MG/ML 5ML VIAL IV ONE ×2 (07:00→09:00)
[2020-02-07] MEDS ORDERED: ASPIRIN 81MG TABLET PO ONE (07:00)
[2020-02-07] MEDS: NITROGLYCERIN 0.4MG TABLET SL SL PRN ×3 (07:04→09:14)
[2020-02-07 07:38] LABS: MEAN CORPUSCULAR HEMOGLOBIN 28.3 pg (28.0-32.0); MEAN CORPUSCULAR VOLUME 89.7 fL (80.0-94.0); MEAN PLATELET VOLUME 9.1 fl (7.4-10.4); PLATELET 230 x1000/uL (130-400); RED BLOOD CELL COUNT 2.28 mill/uL (4.7-6.1); RED CELL DISTRIBUTION WIDTH 20.8 % (11.6-14.6)
[2020-02-07 07:39] LABS: CHLORIDE 99 mEq/L (98-107)
[2020-02-07 07:44] LABS: HEMATOCRIT. 20.5 % (42.0-52.0); HEMOGLOBIN. 6.5 g/dL (14.0-18.0)
[2020-02-07 08:08] LABS: PLATELET ESTIMATE NORMAL
[2020-02-07] MEDS: DILTIAZEM HCL 60MG TABLET PO SCH ×2 (15:07→21:04)
[2020-02-07 17:04] VITALS: BP 114/79
[2020-02-07] MEDS ORDERED: ONDANSETRON HCL 4MG/2ML INJ IV PRN (17:15)
[2020-02-07] MEDS ORDERED: ACETAMINOPHEN 325MG TABLET PO PRN (17:15)
[2020-02-07] MEDS ORDERED: CLONIDINE 0.1MG TABLET PO PRN (17:15)
[2020-02-07] MEDS ORDERED: LORAZEPAM 0.5MG TABLET PO PRN (17:15)
[2020-02-07 18:00] VITALS: BP 104/74
[2020-02-07] MEDS ORDERED: HYDROMORPHONE HCL/PF 2MG/ML CPJ IV PRN (18:00)
[2020-02-07] MEDS: HYDROCODONE/ACETAMINOPHEN 5/325MG TABLET PO PRN (18:00)
[2020-02-07 20:00] VITALS: BP 105/78
[2020-02-07] MEDS ORDERED: VANCOMYCIN 1 G PREMIX 200 ML IV SCH (20:30)
[2020-02-07] MEDS: PIPERACILLIN/TAZOBACTAM 2.25 G in DEXTROSE 5% WATER 50 ML IV SCH (20:54)
[2020-02-07 22:00] VITALS: BP 106/63
[2020-02-08] VITALS (18 sets, daily range): BP systolic 82–136; BP diastolic 51–87
[2020-02-08] MEDS: HYDROCODONE/ACETAMINOPHEN 5/325MG TABLET PO PRN ×3 (05:36→19:48)
[2020-02-08] MEDS: DILTIAZEM HCL 60MG TABLET PO SCH (05:37)
[2020-02-08 06:35] LABS: MEAN CORPUSCULAR HEMOGLOBIN 28.9 pg (28.0-32.0); MEAN CORPUSCULAR VOLUME 89.3 fL (80.0-94.0); PLATELET 213 x1000/uL (130-400); RED BLOOD CELL COUNT 2.31 mill/uL (4.7-6.1); RED CELL DISTRIBUTION WIDTH 19.8 % (11.6-14.6)
[2020-02-08 06:48] LABS: HEMATOCRIT. 20.6 % (42.0-52.0); HEMOGLOBIN. 6.7 g/dL (14.0-18.0)
[2020-02-08 08:18] LABS: CLARITY URINE CLEAR (CLEAR); COLOR URINE YELLOW (YELLOW); KETONES URINE NEGATIVE (NEGATIVE); LEUKOCYTE ESTERASE URINE NEGATIVE (NEGATIVE); NITRITE URINE NEGATIVE (NEGATIVE); OCCULT BLOOD URINE NEGATIVE (NEGATIVE); PROTEIN URINE 3+ (NEGATIVE)
[2020-02-08] MEDS: PIPERACILLIN/TAZOBACTAM 2.25 G in DEXTROSE 5% WATER 50 ML IV SCH ×2 (08:38→20:56)
[2020-02-08] MEDS: ATORVASTATIN CALCIUM 20MG TABLET PO SCH (08:38)
[2020-02-08] MEDS: AMLODIPINE 10MG TABLET PO SCH ×2 (08:39→09:00)
[2020-02-08 08:45] LABS: *AMPHETAMINES SCREEN URINE NEGATIVE (NEGATIVE); *BARBITURATES SCREEN URINE NEGATIVE (NEGATIVE); *BENZODIAZEPINES SCREEN URINE NEGATIVE (NEGATIVE)
[2020-02-08 08:46] LABS: *COCAINE SCREEN URINE NEGATIVE (NEGATIVE)
[2020-02-08 08:47] LABS: CANNABINOID URINE SCREEN NEGATIVE (NEGATIVE); METHADONE URINE SCREEN NEGATIVE (NEGATIVE); OPIATES URINE SCREEN PRESUMTIVE POSITIVE (NEGATIVE); PHENCYCLIDINE URINE SCREEN NEGATIVE (NEGATIVE)
[2020-02-08] MEDS ORDERED: HEPARIN SODIUM 1,000 UNIT/1ML VIAL IV ONE (11:15)
[2020-02-08 12:02] LABS: PLATELET ESTIMATE NORMAL
[2020-02-08] MEDS: ACETAMINOPHEN 325MG TABLET PO PRN (14:41)
[2020-02-08] MEDS: DILTIAZEM HCL 30MG TABLET PO SCH ×2 (14:57→21:07)
[2020-02-08] MEDS ORDERED: VANCOMYCIN 1 G PREMIX 200 ML IV SCH (17:00)
[2020-02-08 21:26] LABS: HEMATOCRIT 28.3 % (42.0-52.0); HEMOGLOBIN 9.3 g/dL (14.0-18.0); MEAN CORPUSCULAR HEMOGLOBIN 29.5 pg (28.0-32.0); MEAN CORPUSCULAR VOLUME 90.1 fL (80.0-94.0); PLATELET 181 x1000/uL (130-400); RED BLOOD CELL COUNT 3.14 mill/uL (4.7-6.1); RED CELL DISTRIBUTION WIDTH 16.9 % (11.6-14.6)
[2020-02-09] VITALS (12 sets, daily range): BP systolic 92–121; BP diastolic 50–99
[2020-02-09] MEDS: HYDROCODONE/ACETAMINOPHEN 5/325MG TABLET PO PRN ×4 (04:06→22:14)
[2020-02-09] MEDS: IPRATROPIUM/ALBUTEROL 0.5-3(2.5)MG/3ML NEB HHN PRN ×2 (04:54→21:37)
[2020-02-09] MEDS: DILTIAZEM HCL 30MG TABLET PO SCH ×3 (06:00→21:23)
[2020-02-09 07:06] LABS: HEMATOCRIT. 28.8 % (42.0-52.0); HEMOGLOBIN. 9.3 g/dL (14.0-18.0); MEAN CORPUSCULAR HEMOGLOBIN 29.3 pg (28.0-32.0); MEAN CORPUSCULAR VOLUME 90.5 fL (80.0-94.0); PLATELET 186 x1000/uL (130-400); RED BLOOD CELL COUNT 3.19 mill/uL (4.7-6.1); RED CELL DISTRIBUTION WIDTH 17.4 % (11.6-14.6)
[2020-02-09 07:58] LABS: INR 1.2; PARTIAL THROMBOPLASTIN TIME 32.2 sec (23.4-31.0); PROTHROMBIN TIME 12.6 sec (9.6-11.0)
[2020-02-09] MEDS ORDERED: LIDOCAINE HCL 1% 20ML VIAL (Pyxis) INJ ONE (08:33)
[2020-02-09] MEDS: ATORVASTATIN CALCIUM 20MG TABLET PO SCH (09:31)
[2020-02-09] MEDS: PIPERACILLIN/TAZOBACTAM 2.25 G in DEXTROSE 5% WATER 50 ML IV SCH (09:35)
[2020-02-09] MEDS ORDERED: MIDODRINE HCL 2.5MG TABLET PO SCH (09:45)
[2020-02-09] MEDS: AMIODARONE HCL 200 MG TABLET PO SCH ×2 (09:52→21:32)
[2020-02-09 10:40] LABS: VITAMIN B12 SERUM 692 pg/mL (211-911)
[2020-02-09 14:36] LABS: PLATELET ESTIMATE NORMAL
[2020-02-09] MEDS: MIDODRINE HCL 2.5MG TABLET PO SCH ×2 (16:20→21:31)
[2020-02-10] VITALS (12 sets, daily range): BP systolic 94–130; BP diastolic 50–84
[2020-02-10] MEDS: DILTIAZEM HCL 30MG TABLET PO SCH ×3 (05:15→22:00)
[2020-02-10] MEDS: MIDODRINE HCL 2.5MG TABLET PO SCH ×2 (05:17→14:43)
[2020-02-10 08:13] LABS: HEMATOCRIT. 29.3 % (42.0-52.0); HEMOGLOBIN. 9.7 g/dL (14.0-18.0); MEAN CORPUSCULAR HEMOGLOBIN 29.7 pg (28.0-32.0); MEAN CORPUSCULAR VOLUME 90.1 fL (80.0-94.0); MEAN PLATELET VOLUME 9.1 fl (7.4-10.4); PLATELET 193 x1000/uL (130-400); RED BLOOD CELL COUNT 3.26 mill/uL (4.7-6.1); RED CELL DISTRIBUTION WIDTH 17.4 % (11.6-14.6)
[2020-02-10] MEDS: AMIODARONE HCL 200 MG TABLET PO SCH ×2 (08:17→20:07)
[2020-02-10] MEDS: ATORVASTATIN CALCIUM 20MG TABLET PO SCH (08:17)
[2020-02-10] MEDS: IPRATROPIUM/ALBUTEROL 0.5-3(2.5)MG/3ML NEB HHN PRN (08:58)
[2020-02-10] MEDS ORDERED: LIDOCAINE HCL 1% 20ML VIAL (Pyxis) INJ ONE (09:40)
[2020-02-10] MEDS ORDERED: AMI2 PO (11:13)
[2020-02-10] MEDS ORDERED: MIDO2.5T PO (11:13)
[2020-02-10] MEDS ORDERED: DILT30TA38 PO (11:13)
[2020-02-10 14:23] LABS: PLATELET ESTIMATE NORMAL
[2020-02-10] MEDS: HYDROCODONE/ACETAMINOPHEN 5/325MG TABLET PO PRN (17:56)
[2020-02-11] VITALS (13 sets, daily range): BP systolic 90–118; BP diastolic 55–118
[2020-02-11] MEDS: MIDODRINE HCL 2.5MG TABLET PO SCH ×4 (00:05→22:01)
[2020-02-11] MEDS: HYDROCODONE/ACETAMINOPHEN 5/325MG TABLET PO PRN (03:48)
[2020-02-11] MEDS: DILTIAZEM HCL 30MG TABLET PO SCH ×3 (05:31→20:53)
[2020-02-11] MEDS: ATORVASTATIN CALCIUM 20MG TABLET PO SCH (08:36)
[2020-02-11] MEDS: AMIODARONE HCL 200 MG TABLET PO SCH (08:37)
[2020-02-11] MEDS: IPRATROPIUM/ALBUTEROL 0.5-3(2.5)MG/3ML NEB HHN PRN (10:05)
[2020-02-11 12:10] LABS: BG BASE EXCESS -0.6 mmol/L (-2.0-2.0); BG CARBOXYHEMOGLOBIN 0.5 % (0.5-1.5); BG FRACTION INSPIRED OXYGEN 36; BG HCO3 ACT 24.7 mmol/L (22.0-26.0); BG METHEMOGLOBIN 0.2 % (0.0-1.5); BG OXYHEMOGLOBIN 94.3 % (94.0-97.0); BG PCO2 43.5 mmHg (35.0-45.0); BG PH 7.372 (7.350-7.450); BG PO2 73.4 mmHg (75.0-100.0); BG SAMPLE SITE RIGHT RADIAL; BG TOTAL HEMOGLOBIN 10.9 g/dL (12.0-18.0); BG VENT MODE NASAL CANNULA
[2020-02-12] VITALS (14 sets, daily range): BP systolic 91–130; BP diastolic 54–81
[2020-02-12] MEDS: MIDODRINE HCL 2.5MG TABLET PO SCH ×3 (06:20→21:00)
[2020-02-12 06:33] LABS: HEMATOCRIT. 27.5 % (42.0-52.0); MEAN CORPUSCULAR HEMOGLOBIN 29.6 pg (28.0-32.0); MEAN CORPUSCULAR VOLUME 90.9 fL (80.0-94.0); PLATELET 194 x1000/uL (130-400); RED BLOOD CELL COUNT 3.03 mill/uL (4.7-6.1); RED CELL DISTRIBUTION WIDTH 17.5 % (11.6-14.6)
[2020-02-12] MEDS: ATORVASTATIN CALCIUM 20MG TABLET PO SCH (09:14)
[2020-02-12] MEDS: AMIODARONE HCL 200 MG TABLET PO SCH ×2 (09:14→21:00)
[2020-02-12] MEDS: DILTIAZEM HCL 30MG TABLET PO SCH ×2 (09:15→21:00)
[2020-02-12 09:46] LABS: TOTAL IRON BINDING CAPACITY 254 ug/dL (250-450)
[2020-02-12 10:04] LABS: PLATELET ESTIMATE NORMAL
[2020-02-12 12:41] LABS: CREATINE KINASE 15 IU/L (39-308)
[2020-02-12] MEDS: DOXYCYCLINE 100 MG in DEXT 5% WATER 100 ML IV SCH (13:04)
[2020-02-12] MEDS ORDERED: DAPTOMYCIN 500 MG in SODIUM CHLORIDE 0.9% 50 ML IV SCH (14:00)
[2020-02-12] MEDS ORDERED: AMIODARONE HCL 50MG/ML 3ML VIAL IV STA (17:47)
[2020-02-12] MEDS ORDERED: AMIODARONE HCL 150 MG in DEXT 5% WATER 100 ML IV SCH (18:00)
[2020-02-12] MEDS: IRON SUCROSE COMPLEX 100 MG/5 ML ML IV SCH (18:19)
[2020-02-12] MEDS: AMIODARONE HCL 900 MG in DEXT 5% WATER 482 ML IV SCH (18:36)
[2020-02-13] VITALS (17 sets, daily range): BP systolic 76–118; BP diastolic 25–75
[2020-02-13] MEDS: AMIODARONE HCL 900 MG in DEXT 5% WATER 482 ML IV SCH (00:43)
[2020-02-13] MEDS: DOXYCYCLINE 100 MG in DEXT 5% WATER 100 ML IV SCH ×2 (00:45→13:45)
[2020-02-13] MEDS: IPRATROPIUM/ALBUTEROL 0.5-3(2.5)MG/3ML NEB HHN PRN (03:06)
[2020-02-13] MEDS: MIDODRINE HCL 2.5MG TABLET PO SCH ×2 (06:20→13:45)
[2020-02-13 06:57] LABS: HEMATOCRIT. 28.8 % (42.0-52.0); HEMOGLOBIN. 9.3 g/dL (14.0-18.0); MEAN CORPUSCULAR HEMOGLOBIN 29.7 pg (28.0-32.0); MEAN CORPUSCULAR VOLUME 92.3 fL (80.0-94.0); MEAN PLATELET VOLUME 9.6 fl (7.4-10.4); PLATELET 128 x1000/uL (130-400); RED BLOOD CELL COUNT 3.12 mill/uL (4.7-6.1); RED CELL DISTRIBUTION WIDTH 18.2 % (11.6-14.6)
[2020-02-13] MEDS: DILTIAZEM HCL 30MG TABLET PO SCH ×2 (09:00→20:48)
[2020-02-13] MEDS ORDERED: ALBUTEROL (0.083%) 2.5MG/3ML NEB HHN NR (09:30)
[2020-02-13] MEDS: AMIODARONE HCL 200 MG TABLET PO SCH ×2 (09:39→17:17)
[2020-02-13] MEDS: IRON SUCROSE COMPLEX 100 MG/5 ML ML IV SCH (09:40)
[2020-02-13] MEDS: ATORVASTATIN CALCIUM 20MG TABLET PO SCH (09:40)
[2020-02-13] MEDS ORDERED: MIDODRINE HCL 5MG TABLET PO NR (10:30)
[2020-02-13] MEDS ORDERED: SODIUM POLYSTYRENE SULFONATE 15 G/60 ML BOT PO NR ×2 (11:00→19:30)
[2020-02-13] MEDS ORDERED: ALBUMIN HUMAN 25GM/100ML (25%) IV NR ×2 (11:00→20:45)
[2020-02-13] MEDS: MIDODRINE HCL 5MG TABLET PO SCH (17:19)
[2020-02-13] MEDS: ACETAMINOPHEN 325MG TABLET PO PRN (17:43)
[2020-02-13] MEDS ORDERED: MIDODRINE HCL 5MG TABLET PO SCH (18:15)
[2020-02-13] MEDS ORDERED: AMIODARONE HCL 900 MG in DEXT 5% WATER 482 ML IV SCH (19:00)
[2020-02-13] MEDS ORDERED: HETASTARCH/NORMAL SALINE 500 ML PLAST..BAG IV NR (20:45)
[2020-02-13 21:11] LABS: PLATELET ESTIMATE NORMAL
[2020-02-14] VITALS (12 sets, daily range): BP systolic 39–121; BP diastolic 18–91
[2020-02-14] MEDS: ACETAMINOPHEN 325MG TABLET PO PRN (00:16)
[2020-02-14] MEDS: DOXYCYCLINE 100 MG in DEXT 5% WATER 100 ML IV SCH (01:00)
[2020-02-14 04:56] LABS: BG BASE EXCESS -14.5 mmol/L (-2.0-2.0); BG CARBOXYHEMOGLOBIN 0.3 % (0.5-1.5); BG DEOXYHEMOGLOBIN 55.7 % (0.0-5.0); BG FRACTION INSPIRED OXYGEN 100; BG HCO3 ACT 16.2 mmol/L (22.0-26.0); BG METHEMOGLOBIN 0.6 % (0.0-1.5); BG OXYGEN SATURATION 43.8 % (92.0-98.5); BG OXYHEMOGLOBIN 43.4 % (94.0-97.0); BG PCO2 63.9 mmHg (35.0-45.0); BG PH 7.021 (7.350-7.450); BG PO2 37.8 mmHg (75.0-100.0); BG SAMPLE SITE RIGHT BRACHIAL; BG TIDAL VOLUME(mL) 500 mL; BG TOTAL HEMOGLOBIN 9.4 g/dL (12.0-18.0); BG VENT MODE VENT - A/C; BG VENT RATE 16 set
[2020-02-14] MEDS ORDERED: DEXT 10% WATER 1,000 ML IV SCH (05:15)
[2020-02-14] MEDS ORDERED: PROPOFOL 10MG/ML 100ML 100 ML IV PRN (05:15)
[2020-02-14] MEDS ORDERED: SODIUM BICARBONATE 8.4% 1 MEQ/ML 50ML SYR IV SCH (05:15)
[2020-02-14] MEDS ORDERED: DEXTROSE 50% WATER 50ML VIAL IV ONE ×2 (05:40)
[2020-02-14] MEDS ORDERED: CALCIUM CHLORIDE 1GM/10ML SYR IV ONE ×2 (05:40)
[2020-02-14] MEDS ORDERED: EPINEPHRINE 0.1MG/ML (1:10,000) 10ML SYR ONE ×2 (05:40)
[2020-02-14] MEDS ORDERED: SODIUM BICARBONATE 8.4% MEQ/ML 50ML VIAL IV ONE ×2 (05:40)
[2020-02-14] MEDS ORDERED: NOREPINEPHRINE 32 MG in DEXT 5% WATER 468 ML IV PRN (06:00)
[2020-02-14] MEDS ORDERED: PHENYLEPHRINE 40 MG in DEXT 5% WATER 246 ML IV PRN (06:15)
[2020-02-14 06:17] LABS: HEMATOCRIT. 27.4 % (42.0-52.0); HEMOGLOBIN. 8.5 g/dL (14.0-18.0); MEAN CORPUSCULAR HEMOGLOBIN 29.9 pg (28.0-32.0); MEAN CORPUSCULAR VOLUME 96.9 fL (80.0-94.0); MEAN PLATELET VOLUME 10.4 fl (7.4-10.4); PLATELET 85 x1000/uL (130-400); RED BLOOD CELL COUNT 2.83 mill/uL (4.7-6.1); RED CELL DISTRIBUTION WIDTH 19.3 % (11.6-14.6)
[2020-02-14] MEDS ORDERED: PHENYLEPHRINE 80 MG in DEXT 5% WATER 492 ML IV PRN (06:30)
[2020-02-14] MEDS ORDERED: VASOPRESSIN 10 UNIT in SODIUM CHLORIDE 0.9% 99.5 ML IV PRN (07:00)
[2020-02-14] MEDS ORDERED: DOPAMINE 800MG PREMIX (DOUBLE) 250 ML IV PRN (07:45)
[2020-02-14 08:35] LABS: CHLORIDE 107 mEq/L (98-107)
[2020-02-14 08:42] LABS: PHOSPHORUS 7.6 mg/dL (2.5-4.9)
[2020-02-14] MEDS: ATORVASTATIN CALCIUM 20MG TABLET PO SCH (09:00)
[2020-02-14] MEDS: DILTIAZEM HCL 30MG TABLET PO SCH (09:00)
[2020-02-14] MEDS: MIDODRINE HCL 5MG TABLET PO SCH (09:00)
[2020-02-14] MEDS ORDERED: AMIODARONE HCL 900 MG in DEXT 5% WATER 482 ML IV SCH (09:00)
[2020-02-14] MEDS ORDERED: ALBUMIN HUMAN 12.5G/250ML (5%) IV SCH ×2 (09:00→12:00)
[2020-02-14 09:04] LABS: BG BASE EXCESS -21.4 mmol/L (-2.0-2.0); BG CARBOXYHEMOGLOBIN 0.3 % (0.5-1.5); BG DEOXYHEMOGLOBIN 0.7 % (0.0-5.0); BG FRACTION INSPIRED OXYGEN 100; BG HCO3 ACT 8.4 mmol/L (22.0-26.0); BG METHEMOGLOBIN 0.5 % (0.0-1.5); BG OXYGEN SATURATION 99.3 % (92.0-98.5); BG OXYHEMOGLOBIN 98.5 % (94.0-97.0); BG PCO2 34.2 mmHg (35.0-45.0); BG PO2 278.6 mmHg (75.0-100.0); BG SAMPLE SITE RIGHT RADIAL; BG TIDAL VOLUME(mL) 550 mL; BG TOTAL HEMOGLOBIN 9.7 g/dL (12.0-18.0); BG VENT MODE VENT - A/C; BG VENT RATE 26 set
[2020-02-14] MEDS ORDERED: SODIUM BICARBONATE 100 MEQ in DEXTROSE 5% WATER 1,000 ML IV SCH (09:30)
[2020-02-14] MEDS: IRON SUCROSE COMPLEX 100 MG/5 ML ML IV SCH (10:32)
[2020-02-14] MEDS ORDERED: ALBUMIN HUMAN 12.5G/250ML (5%) IV NR (11:00)
[2020-02-14 11:19] LABS: NUCLEATED RED BLOOD CELLS 3 /100 WBC; PLATELET ESTIMATE DECREASED
[2020-02-14 11:47] LABS: HEMOGLOBIN 8.8 g/dL (14.0-18.0); MEAN CORPUSCULAR HEMOGLOBIN 29.7 pg (28.0-32.0); PLATELET 54 x1000/uL (130-400); RED BLOOD CELL COUNT 2.95 mill/uL (4.7-6.1); RED CELL DISTRIBUTION WIDTH 19.9 % (11.6-14.6)
[2020-02-14] MEDS ORDERED: CEFAZOLIN 1000MG PREMIX 50 ML IV SCH (12:00)
[2020-02-14 12:37] LABS: BG BASE EXCESS -25.8 mmol/L (-2.0-2.0); BG CARBOXYHEMOGLOBIN 0.3 % (0.5-1.5); BG DEOXYHEMOGLOBIN 1.2 % (0.0-5.0); BG FRACTION INSPIRED OXYGEN 100; BG HCO3 ACT 5.9 mmol/L (22.0-26.0); BG METHEMOGLOBIN 0.6 % (0.0-1.5); BG OXYGEN SATURATION 98.8 % (92.0-98.5); BG OXYHEMOGLOBIN 97.9 % (94.0-97.0); BG PCO2 31.7 mmHg (35.0-45.0); BG PH 6.887 (7.350-7.450); BG PO2 239.8 mmHg (75.0-100.0); BG SAMPLE SITE LEFT RADIAL; BG TIDAL VOLUME(mL) 550 mL; BG TOTAL HEMOGLOBIN 9.2 g/dL (12.0-18.0); BG VENT MODE VENT - A/C; BG VENT RATE 30 set
[2020-02-14] MEDS ORDERED: SODIUM BICARBONATE 8.4% 1 MEQ/ML 50ML SYR IV NR (13:00)
[2020-02-14 13:04] LABS: MEAN CORPUSCULAR VOLUME 101.6 fL (80.0-94.0)
[2020-02-14 13:11] LABS: PROTHROMBIN TIME 50.9 sec (9.6-11.0)
[2020-02-14] MEDS ORDERED: MORPHINE SULFATE 250 MG in DEXT 5% WATER 240 ML IV PRN (13:15)
[2020-02-14 13:23] LABS: D-DIMER > 35.20 mg/L FEU (<0.50); FIBRINOGEN < 50 mg/dL (200-400); INR 5.3
[2020-02-14] MEDS ORDERED: SODIUM BICARBONATE 150 MEQ in DEXTROSE 5% WATER 1,000 ML IV SCH (14:00)
[2020-02-14] MEDS ORDERED: PANTOPRAZOLE SODIUM 40 MG/VIAL IV SCH (17:00)
== END 2020-02-14 17:00 | disposition expired | DRG 721 ==
LOC: ER 06:27 → 3WST 09:40 → EDBEDREQ 09:44 → EDBEDREQTM 09:44 → ENRESERV 15:54 → CVICU 02-14 03:58
PROVIDERS: ADMIT Internal Medicine; ATTEND Internal Medicine
PROC: 30233N1 Transfusion of Nonautologous Red Blood Cells into Peripheral Vein, Percutaneous Approach (ICD-10-PCS; 2020-02-07)
PROC: 5A1D70Z Performance of Urinary Filtration, Intermittent, Less than 6 Hours Per Day (ICD-10-PCS; 2020-02-07)
PROC: 0JPT3XZ Removal of Tunneled Vascular Access Device from Trunk Subcutaneous Tissue and Fascia, Percutaneous Approach (ICD-10-PCS; principal; 2020-02-09)
PROC: B54CZZA Ultrasonography of Left Lower Extremity Veins, Guidance (ICD-10-PCS; 2020-02-10)
PROC: 06HY33Z Insertion of Infusion Device into Lower Vein, Percutaneous Approach (ICD-10-PCS; 2020-02-10)
PROC: 5A1D70Z Performance of Urinary Filtration, Intermittent, Less than 6 Hours Per Day (ICD-10-PCS; 2020-02-10)
PROC: 5A1D70Z Performance of Urinary Filtration, Intermittent, Less than 6 Hours Per Day (ICD-10-PCS; 2020-02-12)
PROC: 5A1D70Z Performance of Urinary Filtration, Intermittent, Less than 6 Hours Per Day (ICD-10-PCS; 2020-02-13)
PROC: 5A12012 Performance of Cardiac Output, Single, Manual (ICD-10-PCS; 2020-02-14)
PROC: 0BH17EZ Insertion of Endotracheal Airway into Trachea, Via Natural or Artificial Opening (ICD-10-PCS; 2020-02-14)
PROC: 5A1935Z Respiratory Ventilation, Less than 24 Consecutive Hours (ICD-10-PCS; 2020-02-14)
DX: T80.211A Bloodstream infection due to central venous catheter, initial encounter (principal); J96.01 Acute respiratory failure with hypoxia; J96.02 Acute respiratory failure with hypercapnia; I48.91 Unspecified atrial fibrillation; I25.110 Atherosclerotic heart disease of native coronary artery with unstable angina pectoris; Z95.1 Presence of aortocoronary bypass graft; E78.5 Hyperlipidemia, unspecified; Z66 Do not resuscitate; N18.6 End stage renal disease; Z99.2 Dependence on renal dialysis; E87.6 Hypokalemia; Z72.0 Tobacco use; E43 Unspecified severe protein-calorie malnutrition; I50.20 Unspecified systolic (congestive) heart failure; I13.2 Hypertensive heart and chronic kidney disease with heart failure and with stage 5 chronic kidney disease, or end stage renal disease; A41.02 Sepsis due to Methicillin resistant Staphylococcus aureus; Y84.8 Other medical procedures as the cause of abnormal reaction of the patient, or of later complication, without mention of misadventure at the time of the procedure; R65.21 Severe sepsis with septic shock; Z20.828 Contact with and (suspected) exposure to other viral communicable diseases; Z51.5 Encounter for palliative care; D73.4 Cyst of spleen; E16.2 Hypoglycemia, unspecified; E83.39 Other disorders of phosphorus metabolism; E83.41 Hypermagnesemia; E87.2 Acidosis; E87.5 Hyperkalemia; R16.0 Hepatomegaly, not elsewhere classified; I08.2 Rheumatic disorders of both aortic and tricuspid valves; D69.6 Thrombocytopenia, unspecified; J90 Pleural effusion, not elsewhere classified; D63.1 Anemia in chronic kidney disease; I27.21 Secondary pulmonary arterial hypertension; I46.9 Cardiac arrest, cause unspecified; I71.2 Thoracic aortic aneurysm, without rupture; K29.71 Gastritis, unspecified, with bleeding; K72.00 Acute and subacute hepatic failure without coma; N28.89 Other specified disorders of kidney and ureter; Z79.899 Other long term (current) drug therapy; Y92.89 Other specified places as the place of occurrence of the external cause; Z78.1 Physical restraint status; Z95.3 Presence of xenogenic heart valve; Z68.22 Body mass index [BMI] 22.0-22.9, adult; J18.9 Pneumonia, unspecified organism
CPT/HCPCS: 36415; 36589; 36600; 71045; 71250; 76937; 80048; 80053; 80202; 80305; 81003; 82270; 82375; 82550; 82607; 82805; 82962; 83540; 83550; 83605; 83735; 83880; 84100; 84132; 84145; 84443; 84484; 85025; 85027; 85044; 85362; 85379; 85384; 86850; 86900; 86920; 87070; 87077; 87635; 92950; 93005; 93306; 94002; 94003; 94640; 99291; C1752; C1887; J0282; J0690; J0878; J1265; J1644; J2370; J2405; J2543; J3370; J3490; J7050; J7060; J7070; P9016; P9041; P9047